=== PATIENT | female | born 1930 | race Caucasian/White ===

== ENCOUNTER 2018-06-10 19:52 | Inpatient (IN) | payer MEDICARE, OTHER ==
[~2018-06-10] VITALS: Ht 152.4 cm; Wt 60.6 kg
[~2018-06-10 19:52] MED LIST: ACET325 PO; ACET500 PO; ALEN10 PO; ALUMAG30SU PO; ANAS1 PO; ASPI325 PO; ASPI81EC PO; Anastrozole1 GM PO; Aspir 8181 MG PO; CALCAVITD PO; CALCAVITDA PO; CALMAGZIN PO; DOCU100 PO; ENOX40I SC; HYDR1TAB94 PO; Hair, Skin & N1 EACH PO; IBUP800 PO; INSUASPI SC; KRILL OIL 3001 EACH PO; KRILL PO; METO25 PO; MULVITMINF PO; NAPROXEN PO; NIFE30ER PO; PIOG15 PO; PRAV20 PO; PRAV40 PO; PROP30DR BOTHEYES; SPIR25 PO; SULTRIDS PO; TRAM50 PO; Ventolin Soln3 ML INH
[2018-06-10 21:36] LABS: BASOPHILS ABSOLUTE AUTO 0.05 K/mm3 (0.00-0.23); BASOPHILS PERCENT AUTO 0 % (0-2); EOSINOPHILS ABSOLUTE AUTO 0.04 K/mm3 (0.00-0.68); EOSINOPHILS PERCENT AUTO 0 % (0-6); Hematocrit 40.5 % (33.0-51.0); IMMATURE GRAN ABSOLUTE AUTO 0.03 K/mm3 (0.00-0.10); IMMATURE GRAN PERCENT AUTO 0 % (0-1); LYMPHOCYTES ABSOLUTE AUTO 0.62 K/mm3 (0.84-5.20); LYMPHOCYTES PERCENT AUTO 5 % (21-46); MONOCYTES ABSOLUTE AUTO 0.67 K/mm3 (0.16-1.47); MONOCYTES PERCENT AUTO 5 % (4-13); Mean Corpuscular HGB Conc 32.1 g/dL (31.5-36.5); Mean Corpuscular Volume 90 fL (80-100); Mean Platelet Volume 9.5 fL (9.1-12.4); NEUTROPHILS ABSOLUTE AUTO 10.98 K/mm3 (1.96-9.15); NEUTROPHILS PERCENT AUTO 89 % (41-73); Platelet Count 233 K/mm3 (150-400); RDW Coefficient Variation 14.3 % (11.7-14.2); RDW Standard Deviation 48.1 fL (35.1-46.3); Red Blood Cell Count 4.48 M/mm3 (3.80-5.20); White Blood Cell Count 12.39 K/mm3 (4.00-11.30)
[2018-06-10 21:54] LABS: Alanine Aminotransfer (ALT/SGP 17 U/L (12-78); Albumin, Blood 3.4 g/dL (3.4-5.0); Alk Phos 119 U/L (50-136); Anion Gap 9 mmol/L (6-16); Aspartate Aminotrans (AST/SGOT 17 U/L (12-37); Bilirubin, Total 0.6 mg/dL (0.1-1.0); Blood Urea Nitrogen 18 mg/dL (8-24); Bun/Creatinine Ratio 21.9 (12.0-20.0); CO2, Blood 23 mmol/L (21-32); Calcium, Blood 9.2 mg/dL (8.5-10.1); Chloride, Blood 108 mmol/L (98-108); Creatinine, Blood 0.82 mg/dL (0.40-1.00); Globulin, Blood 3.4 g/dL (2.2-4.0); Glomerular Filtration Rate >60 (60-); Glucose, Blood 172 mg/dL (70-99); Potassium, Blood 4.1 mmol/L (3.5-5.5); Sodium, Blood 140 mmol/L (136-145); Total Protein, Blood 6.8 g/dL (6.4-8.2)
[2018-06-10 21:56] LABS: Source, Urine Catheter
[2018-06-10 22:04] LABS: Bilirubin, Urine Neg (Neg); Blood, Urine 1+ (Neg); Glucose Qualitative, Urine 2+ (Neg); Ketones, Urine 2+ (Neg); Leukocyte Esterase, Urine Neg (Neg); Nitrite, Urine Neg (Neg); Protein, Urine 1+ (Neg); Urobilinogen, Urine NORM (Normal)
[2018-06-10 22:10] LABS: Appearance, Urine Clear (Clear); Bacteria Not Seen /hpf; Color, Urine Yellow (P-Yellow); Red Blood Cells, Urine 0-2 /hpf (0-2); Squamous Epithelial Cells Not Seen /hpf (Few); White Blood Cells, Urine Not Seen /hpf (0-5)
--- NOTE | 2018-06-11 01:15 | NUR ---
PT ADMITTED FROM ER FOR L FIBULA FX. PT ORIENTED X1. HX OF SEVERE DEMENTIA. MEDICATED WITH 50 MG ULTRAM. FLUIDS INFUSING. BED ALARM ON FOR SAFETY. CALL LIGHT IN REACH. WILL UPDATE MEDICAL RECORD + HISTORY UPON FAMILY ARRIVAL.
--- NOTE | 2018-06-11 16:46 | NUR ---
SUMMARY IN TO ASSESS PT AT 1420. HE SPOKE WITH FAMILY ABOUT PLAN OF CARE. SPLINT WAS PLACED TO LEFT LOWER LEG, CIRC REMAINS WNL. LEG ELEVATED ON PILLOWS. PT TOLERATED PROCEDURE WITH NO PROBLEMS. VSS, BED ALARM ON FOR SAFETY. FAMILY AT BEDSIDE. CALL LIGHT IN REACH. [facility]
--- NOTE | 2018-06-11 21:50 | NUR ---
PT HAS BECOME MORE CONFUSED, IS SCREAMING "HELP ME" AND SWINGING AT STAFF. SHE IS NOT COOPERATIVE WITH ANY CARES, REFUSED MEDICATIONS, VITALS, AND CBG. SHE CAUSED HERSELF A SKIN TEAR TO THE RIGHT FOREARM SWINGING ITEMS. VERIFY REP NOTIFIED. PT TO BE MOVED TO [facility], REPORT TO ELIJAH CHAVARRIA.
--- NOTE | 2018-06-12 04:43 | NUR ---
SHIFT SUMMARY RECEIVED REPORT FROM ELIJAH BLEVINS FROM SURGICAL. ARRIVED TO MEDICAL FLOOR AROUND 0. ALERT TO SELF, BUT RESPONDS TO VERBAL STIMULI. NO C/O PAIN/DISCOMFORT. RECEIVED ORDER TO D/C IV ACCESS; R/T PT PULLING BOTH IV'S. APPEARED TO HAVE REST MOST OF SHIFT. NO ACUTE CHANGES NOTED UPON ARRIVAL. BED IN LOWEST POSITION. ALARM ON. CALL LIGHT IN REACH. REPORT TO ONCOMING RN.
[2018-06-12 05:30] LABS: BASOPHILS ABSOLUTE AUTO 0.05 K/mm3 (0.00-0.23); BASOPHILS PERCENT AUTO 1 % (0-2); EOSINOPHILS ABSOLUTE AUTO 0.12 K/mm3 (0.00-0.68); EOSINOPHILS PERCENT AUTO 2 % (0-6); Hematocrit 33.7 % (33.0-51.0); Hemoglobin 10.9 g/dL (11.5-16.0); IMMATURE GRAN ABSOLUTE AUTO 0.02 K/mm3 (0.00-0.10); IMMATURE GRAN PERCENT AUTO 0 % (0-1); LYMPHOCYTES ABSOLUTE AUTO 0.97 K/mm3 (0.84-5.20); LYMPHOCYTES PERCENT AUTO 12 % (21-46); MONOCYTES ABSOLUTE AUTO 0.89 K/mm3 (0.16-1.47); MONOCYTES PERCENT AUTO 11 % (4-13); Mean Corpuscular HGB 29.3 pg (26.0-34.0); Mean Corpuscular HGB Conc 32.3 g/dL (31.5-36.5); Mean Corpuscular Volume 91 fL (80-100); Mean Platelet Volume 9.7 fL (9.1-12.4); NEUTROPHILS ABSOLUTE AUTO 6.21 K/mm3 (1.96-9.15); NEUTROPHILS PERCENT AUTO 75 % (41-73); Platelet Count 204 K/mm3 (150-400); RDW Coefficient Variation 14.4 % (11.7-14.2); RDW Standard Deviation 47.7 fL (35.1-46.3); Red Blood Cell Count 3.72 M/mm3 (3.80-5.20); White Blood Cell Count 8.26 K/mm3 (4.00-11.30)
[2018-06-12 05:56] LABS: Alanine Aminotransfer (ALT/SGP 18 U/L (12-78); Albumin/Globulin Ratio 0.9 (0.8-1.8); Alk Phos 112 U/L (50-136); Anion Gap 7 mmol/L (6-16); Aspartate Aminotrans (AST/SGOT 36 U/L (12-37); Bilirubin, Total 0.7 mg/dL (0.1-1.0); Blood Urea Nitrogen 13 mg/dL (8-24); CO2, Blood 24 mmol/L (21-32); Calcium, Blood 9.2 mg/dL (8.5-10.1); Chloride, Blood 109 mmol/L (98-108); Creatinine, Blood 0.72 mg/dL (0.40-1.00); Globulin, Blood 3.3 g/dL (2.2-4.0); Glomerular Filtration Rate >60 (60-); Glucose, Blood 104 mg/dL (70-99); Potassium, Blood 4.4 mmol/L (3.5-5.5); Sodium, Blood 140 mmol/L (136-145); Total Protein, Blood 6.3 g/dL (6.4-8.2)
--- NOTE | 2018-06-12 17:54 | NUR ---
SHIFT SUMMARY CALM, CONFUSED; PULLED SANTAMARIA CATHETER OUT. UP IN CHAIR FOR MOST OF AFTERNOON TOLERATED WELL. SON TO VISIT TODAY FROM [place] AND AWARE THAT PT WILL NEED PLACEMENT IN NURSING FACILITY. MEDICATED FOR PAIN TO LLE. TAKING FLUIDS/MEDS WELL. 2 PERSON MAX ASSIT TO BSC FOR BOWEL MOVEMENT.
--- NOTE | 2018-06-13 04:27 | NUR ---
SHIFT SUMMARY ALERT TO SELF, RESPONDS TO VERBAL STIMULI. NO C/O PAIN/DISCOMFORT; GIVEN SCHEDULED ULTRAM @ HS. APPEARED TO HAVE RESTED MOST OF THE SHIFT. TRANSFERED FROM CHAIR TO BED WITH 2 MAX ASSIST. HYPERTENSIVE WITH ELEVATED PULSE; METOPROLOL @ HS; VSS/AFEBRILE THIS AM 0429. NO ACUTE CHANGES NOTED OVERNIGHT. BED IN LOWEST POSITION. ALARM ON. WCTM. REPORT TO ONCOMING RN.
--- NOTE | 2018-06-13 11:41 | NUR ---
PT WITH URINE OUTPUT SINCE LAST P.M. AFTER PT PULLED HER SANTAMARIA OUT DR GALEANA AWARE. NEW ORDERS TO REPEAT BLADDER SCAN AT 1345.
--- NOTE | 2018-06-13 18:27 | NUR ---
SHIFT SUMMARY UP IN CHAIR FOR 2-3 HOURS TODAY AND FOR LUNCH. LIFT PATIENT. VERY WEAK. ABLE TO EAT INDEPENDENTLY. PAIN WITH MOVEMENT. ABLE TO SIT ON BSC. CONTINENT. VERY CONFUSED; DEMENTIA.
--- NOTE | 2018-06-14 04:29 | NUR ---
SHIFT SUMMARY NO ACUTE CHANGES; REMAINS ALERT TO SELF AND RESPONDS TO VERBAL STIMULI. DENIES PAIN/DISCOMFORT, BUT CALLS OUT IN PAIN WITH MOVEMENT. MEDICATED PER EMAR. REMAINS HYPERTENSIVE WITH ELEVATED PULSE; METOPROLOL @ HS. APPEARED TO REST MOST OF SHIFT. BED IN LOWEST POSITION. ALARM ON. WCTM. REPORT TO ONCOMING RN.
--- NOTE | 2018-06-14 10:45 | NUR ---
Clinical update received from and RN. Visit made. Pt was sleeping but woke easily to voice. She was very calm and pleasant in confusion until I and another RN attempted to reposition her in bed. She cried out in pain and appeared anxious, fearful and demonstrated obvious indicators of extreme pain. This was reported to with request for additional medications for breakthru pain. Pt had had Tramadol per tid schedule this am and was not due for another dose within the next couple hours. Recommended Roxanol 5-10 mg SL q2-4 hrs prn breakthru pain and premed for position changes or transfers. Pt with attends on and also uses BSC. She has extensive bruising and skin tears to both forearms. L lower ext in temporary splint for tibial fx. No family present. Satellite Manager referral made yesterday. Staff spoke to family friend, Felix, who states recognizes that he cannot care for pt at home and requests assist with [facility] care placement. This informaiton passed on to GALILEA Wiley. I will keep checking to see if family present to touch bases with. Report given to pt's RN, Gino, re: all of above. It is unclear if pt would meet criteria for hospice due to her dementia but she will need s/s and pain management with or without hospice support. Will follow with Care Mgmt.
--- NOTE | 2018-06-14 16:46 | NUR ---
SHIFT SUMMARY THE PATIENT PRESENTED THIS AM WITH WITH VITALS WNL, A&O TO SELF AMD LUNGS THAT WERE CLEAR. BUT DIM IN THE BASES. THE PATIENT WORKED WITH P/T AND O/T, BUT MOSTLY REFUSED TO DO ANYTHING. THE PATIENT WAS LIFTED WITH A KIM LIFT TO HER CHAIR FOR ABOUT THREE HOURS, AT LUNCH TIME. THE PATIENT REFUSED TO GO TO THE BEDSIDE COMMODE AFTER BEING BLADDER SCANCED AND WAS STRIAGTH CATHED WITH THE REMOVEAL OF 750 ML OF URINE. THE PATIENT IS RESTING AT THIS TIME WILL CONTINUE TO MONITOR.
--- NOTE | 2018-06-15 03:58 | NUR ---
SHIFT SUMMARY PT ADMITTED FOR L FEMUR FRACTURE SECONDARY TO A FALL AT HOME. FRACTURE IS NOT NON-OPPERABLE. DNR. ADA DIET. UP IN CHAIR DAILY-USE KIM LIFT TO TRANSFER FROM BED TO RECLINER TO PRESERVE SKIN INTEGRITY AND INCREASED UPRIGHT TOLLERANCE. BLADDER SCAN PT IF UNABLE TO VOID AND STRAIGHT CATH IF GREATER THEN 450 MLS. PT ABLE TO VOID APPROPRIATELY THIS NIGHT. NO IV ACCESS NEDED AND ORDER IN PLACE. CBG AT AND HS. PT/OT. LOVENOX FOR DVT PROPHYLAXIS. PER REPORT PT ABLE TO TAKE MEDICATIONS WHOLE WITH WATER, THIS WAS NOT THE CASE THIS NIGHT. PT MEDS NEED TO BE CRUSHED WITH APPLESAUCE. PT IS SIGNIFICANTLY CONFUSED, UNABLE TO REDIRECT, COMBATIVE, AND UNABLE TO CONSOLE. ATTEMPTED TO OFFER PAIN MEDICATIONS AND PT ADIMATELY REFUSED STATING SHE WAS HAVING NO PAIN. WILL CONTINUE TO REAPPROACH. PT IS A HEAVY 2-3 PERSON WITH ATTENDS MANAGMENT WHILE IN BED DUE TO BEHAVIORS. PT PRESENTED TO THE ED WITH COMPLAINTS OF SEVERE PAIN TO THE LEFT LEG SUBSEQUENT FALL WHILE GETTING IN TO THE SHOWER PER . PT NOTED TO HAVE SEVERE DEMENTIA WHICH IS THE PTS BASELINE PER REPORT. CASE MANAGEMENT IS FOLLOWING UP ON DISCHARGE ARRANGEMENTS. PT HAS APPEARED TO REST COMFORTABLY IN BED OFF AND ON, SCREAMING OUT FOR HELP A FEW TIMES. REPOSITIONED PT AT THAT TIME WHICH PT SIGNIFICANTLY PROTESTED, ALSO RAISED SOUND ON MUSIC DAYO IN ROOM AND LEFT LIGHT ON. PT HAS APPEARED TO REST COMFORTABLY SINCE THAT TIME STAIRING UP AT THE CEILING WITH NO APPARENT SIGNS OF ACUTE DISTRESS. FREQUENT VISUAL CHECKS PT DOES NOT APPEAR TO USE CALL LIGHT APPROPRIATELY. BED ALARM FOR SAFETLY.
--- NOTE | 2018-06-15 18:39 | NUR ---
SHIFT SUMMARY THE PATIENT PRESENTED THIS AM WITHVITALS WNL, A&O TO SELF AND LUNGS THE WERE CLEAR. THE PATIENT WAS UNWILLING TO TAKE HER MEDS AT THE PROPER TIME BUT AFTER WAITING FOR 30 MINUTES I WAS ABLE TO GIVE HER THE B/P MEDS WITH APPLE SAUSE. THE PATIENT HAS BEEN PLEASENT MOST OF THE SHIFT AND HAS TAKEN PAIN MEDICATION ONCE ONLY AND REFUSED IT THE REST OF THE TIME. THE PATIENT IS EATING HER DINNER AT THIS TIME, WILL CONTINUE TO MONITOR.
--- NOTE | 2018-06-16 05:56 | NUR ---
SHIFT SUMMARY PT IS A&O X 1-2, AND FORGETFUL. SHE WAS COOPERATIVE WITH CARE DURING THE NIGHT. THE PT GRIMACED WHEN HER L LEG WAS MOVED, BUT DENIED THE NEED FOR PAIN MEDS. SHE DENIED SOB OR NAUSEA AND SLEPT WELL OFF AND ON DURING THE NIGHT. VITAL SIGNS STABLE. NO OTHER ACUTE CHANGES IN PT CONDITION. WILL CONTINUE TO MONITOR AND TREAT PER EMAR UNTIL HAND OFF TO DAY SHIFT.
--- NOTE | 2018-06-16 17:36 | NUR ---
SHIFT SUMMARY PT AXO TO SELF AND FOLLOWING DIRECTIONS. PT HAD FEVER OF 100.2 AT 1504. MEDICATED PER EMAR, AFEBRILE AT THIS TIME. PT UP TO A CHAIR X2 THIS SHIFT WITH LIFT. PT CONFUSED, FORGETFUL AND APACHE. NO ACUTE CHANGES THIS SHIFT. BED IN LOW POSITION, CALL LIGHT WITHIN REACH, ALARM ON.
--- NOTE | 2018-06-17 05:20 | NUR ---
VSS, AFEBRILE, A/O TO SELF, NO IV - MD OK, L LE IMMOBILZED WITH YVETTE WRAP, FORGETFUL, CALLS OUT RANDOMLY AT TIMES, USE THE LIFT TO TX FOR PT SAFETY, MEDS CRUSHED IN APPLESAUCE, INCONT, SKIN TEAR R FA, PLACEMENT ISSUE.
--- NOTE | 2018-06-17 16:21 | NUR ---
PATIENT ALERT TO SELF. SEEMED TO HAVE PAIN TO LEFT LEG WHEN MOVING BY LIFT, BUT WHEN GOT BACK IN BED DID NOT C/O PAIN AND FELL ASLEEP EASILY. UP IN CHAIR USING LIFT. LEFT LEG ELEVATED WITH PILLOW. COOPERATIVE. UNLABORED RESPIRATIONS. SLEEPING MOST OF DAY. BED IN LOW POSITION. WILL CONTINUE TO MONITOR.
--- NOTE | 2018-06-18 07:13 | NUR ---
06/18/18 0600 SLEEPING WITHOUT DISTRESS. DENIED PAIN THIS SHIFT. VITALS REMAIN STABLE. TURN Q 2 HOURS AND WAS INCONTINENT SEVERAL TIMES.
--- NOTE | 2018-06-18 16:58 | NUR ---
PATIENT ALERT TO SELF, FAMILY AND SITUATION. MEDICATED ONCE FOR PAIN WITH GOOD RESULTS. UP TO CHAIR FOR BREAKFAST AND LUNCH. SPLINT NOT TAKEN OFF. PATIENT ABLE TO WIGGLE TOES LEFT SIDE. UNLABORED RESPIRATIONS. NO ACUTE CHANGES. WILL CONTINUE TO MONITOR.
--- NOTE | 2018-06-19 06:20 | NUR ---
SHIFT SUMMARY: PT ALERT TO SELF ONLY. PT BECOMES VERY RESTLESS THIS SHIFT AND REQUESTS TO LEAVE THE HOSPITAL BECAUSE PT WANTED TO BEAR WEIGHT ON L FEMUR FX, AND WALK, WHEN PT HAS BEEN REQUIRING KIM LIFT FOR TRANSFER SINCE ADMISSION. THIS RN ABLE TO DE-ESCALATE PT. PT MEDICATED 2X FOR PAIN c 5MG NORCO AVAILABLE Q6H. PT REPORTS RELIEF. SPLINT IN PLACE TO L FEMUR. PULSES PALPABLE IN DISTAL TOES, AND PT DENIES ANY N/T. NO OTHER ACUTE CHANGES TO REPORT. WILL CONT TO MONITOR AND PROVDE CARE UNTIL PRESUMED BY ONCOMING RN.
--- NOTE | 2018-06-19 17:38 | NUR ---
SHIFT SUMMARY PT AXO TO SELF ONLY, [place]. VSS. PT UP TO RECLINER THROUGHOUT THE SHIFT, BACK IN BED AT THIS TIME. SLEEPING MOST OF THE DAY, CALLS OUT WHEN AWAKE. ORTHO CONSULT TODAY, NON-WEIGHT BEARING ORDER IN PLACE. SKIN INTACT UNDER DRESSING AND VERIFIED WITH DR. QUARLES. PT CONTINUES TO BE IN IMMOBILIZER THAT WAS PLACED BY DR. DUFFY. BED IN LOW POSITION, CALL LIGHT WITHIN REACH, BED ALARM ON.
--- NOTE | 2018-06-19 17:55 | NUR ---
PATIENTS ATTENDS WERE CHECKED AND THEY WERE CLEAN AND DRY. RN WAS NOTIFIED.
--- NOTE | 2018-06-20 06:31 | NUR ---
SHIFT SUMMARY: PT L LEG REMAINS IN IMMOBILIZER. PT IS SLEEPING ENTIRE SHIFT, BUT AROUSABLE FOR ATTENDS CHANGES AND REPOSITIONING. PT WHIMPERS, DEMARIO OUT, AND BECOMES TEARFUL c ANY MOVEMENT OF THE L LEG. ADMNISTERED PO NORCO 1X THIS SHIFT. POST VOID RESIDUAL BLADDER SCAN UNREMARKABLE @ >150 mL. DENIES SOB. ALERT TO SELF ONLY, CAN FOLLOW SOME COMMANDS. VERY FORGETFUL. VSS. WILL CONT TO MONITOR AND PROVIDE CARE UNTIL PRESUMED BY ONCOMING RN.
--- NOTE | 2018-06-20 18:24 | NUR ---
SHIFT SUMMARY PT AXO TO SELF ONLY, PLEASANT BUT FORGETFUL. PT SLEEPING THROUGHOUT THE SHIFT. PT UP TO RECLINER WITH LIFT AND THEN BACK TO BED AT 1300. PT MEDICATED FOR PAIN ONCE PER EMAR. IMMOBILIZER ORDERED AND IS AT BEDSIDE, PATIENT CURRENTLY IN SPLINT THAT WAS PLACED BY DR DIMAS ON . MEPILEX ON COCCYX. BED IN LOW POSITION, CALL LIGHT WITHIN REACH, BED ALARM ON
--- NOTE | 2018-06-21 05:49 | NUR ---
SHIFT SUMMARY PT A&O TO SELF, [place], PLEASANTLY CONFUSED BUT ABLE TO FOLLOW DIRECTIONS. SPLINT ON LEFT LEG IN PLACE. MEDICATED PAIN PER EMAR. SLEPT WELL T/O THE NIGHT. BED ALARM ON AND APPROPRIATE SIDERAILS UP FOR SAFETY. CALL LIGHT WITHIN REACH. WILL CONTINUE TO MONITOR.
--- NOTE | 2018-06-21 17:05 | NUR ---
PATIENT ORIENTED TO SELF ONLY. TURNING Q2 HOURS, UP TO CHAIR WITH KIM LIFT. DR. REAGAN AT BEDSIDE TODAY AND REPLACED SPINT WITH IMMOBILIZER. FOLLOW K-RAY OF L KNEE COMPLETED. MEDICATED X2 WITH NORCO TO TREAT PAIN. NWB TO LLE. TOLERATING ADA DIET, NO ORDER FOR BLOOD SUGARS. INCONTINENT OF URINE, WEARING ATTENDS WITH GOOD OUTPUT THIS SHIFT. AWAITING PLACEMENT IN HALFWAY CARE.
--- NOTE | 2018-06-22 04:15 | NUR ---
SHIFT SUMMARY MEDICATED PAIN PER EMAR WITH GOOD RESULT. LLE IMMOBILIZER IN PLACE. REPOSITIONED T/O SHIFT. SLEP WELL. PT PLEASANT AND COOPERATIVE WITH CARE. WILL CONTINUE MONITOR.
--- NOTE | 2018-06-22 17:48 | NUR ---
PATIENT ORIENTED TO SELF AND FAMILY. UP IN CHAIR FOR MOST OF THIS SHIFT USING A KIM. NORCO GIVEN TO TREAT PAIN, VERY PAINFUL WITH REPOSITIONING. REFUSES MEDS AT TIMES. DOES BEST WITH MEDS CRUSHED IN APPLESAUCE AT MEAL TIME. FOAM DRESSING TO COCCYX REMAINS C/D/I. FALL PRECAUTIONS IN PLACE. NO ACUTE CHANGES THIS SHIFT.
--- NOTE | 2018-06-23 07:16 | NUR ---
no complaint of pain, took medication in as with no problems, alert at baseline, no IV, room air, sbar report provided to day staff
--- NOTE | 2018-06-23 16:32 | NUR ---
SUMMARY PT HAS HX DEMENTIA, ORIENT TO NAME ONLY. SHE IS VERY PLEASANT, SMILING GENERALLY COOPERATIVE HOWEVER @ X'S DISROBES. SHE HAS NO PAIN @ REST HOWEVER CRIES OUT WITH MOVEMENT/REPOSITIONING, ESPECIALLY MOVEMENT OF L LEG, IMMOBILIZER IN PLACE. LE IE SWOLLEN WITH BRUISING, SHE IS ABLE TO WIGGLE TOES, CAP REFILL <3 SECS, DR BANSAL ASSESS. HAVE GIVEN NORCO TODAY FOR PAIN CONTROL/RELIEF. VSS. WILTON WEAVER ARRANGING FOR MEMORY CARE WHEN APPROP/FAMILY.
--- NOTE | 2018-06-24 07:17 | NUR ---
moods were changable, some times she liked people and other times she yelled and tried to strike people trying to help her, no IV, room air, sbar report given to returning nurse, call light in reach
--- NOTE | 2018-06-24 16:42 | NUR ---
SUMMARY PT CONTINUES CONFUSED/DISORIENTED, HX DEMENTIA. SHE IS GENERALLY PLEASANT & COOPERATIVE WITH CARE. REQUIRES ASSIST WITH MEALS, POOR APPETITE, EATS VERY LITTLE INSPITE OF ENCOURAGEMENT, ELECTRICAL ENGINEERING TEACHER ASSISTING TODAY WITH MENU & SUPPLEMENTS. VERY LITTLE PARTICIPATION WITH PT/OT, LLE PAINFUL WITH MOVEMENT, IMMOBILIZER IN PLACE. VSS. DR NIMISHA BLOCK [facility] ON PLACEMENT.
--- NOTE | 2018-06-25 04:15 | NUR ---
SHIFT SUMMARY PT ALERT, NOT ORIENTED. BECOMES AGITATED AT TIMES, PULLS OFF CLOTHING. INCONTINENT. URINE DARK AND FOUL SMELLING. TURNED PT AND CHANGED NEEDED. PT DOES NOT LIKE TO BE TOUCHED AND BECOMES VERY UPSET WHEN TURNING. PAINFUL IN LLE W/ MOVEMENT. MEDICATED X 1 W/ 1 TAB NORCO[address] IMMOB[address] IN PL[address] ON L KNEE. PT TOLERATING WELL. REDNESS AND EXCORIATION ON COCCYX AREA. BARRIER CREAM APPLIED. ATTENDS IN PLACE. OTHERWISE NO ACUTE CHANGES. WILL CONTINUE TO MONITOR.
--- NOTE | 2018-06-25 16:28 | NUR ---
GERTRUDIS ISQUITE PLEASANT CONFUSED. NONSENSICAL. KNOWS SELF SOMEWHAT. DENIES PAIN. H/R IRREG, NO MURMER NOTED. NO TLE. LUNGS CLEAR RESP EASY, UNLABORED. ON R.A. BT X4 LAST BM UNKNOWN BY PT. VOIDS ATTENDS. HAS LEG BRACE FOR BROKEN LEFT LEG. DENIES PAIN. BED IN LOW POSITION, CALL LITE IN REACH. BED ALARM ON FOR SAFETY.
--- NOTE | 2018-06-25 16:32 | NUR ---
PT HAS BEEN PLEASANTLY CONFUSED TODAY. DENIES PAIN. HAS BEEN WATCHING TV OFF AN ON TODAY. NO C/O PAIN . BED IN LOW POSITION, CALL LITE IN REACH, BED ALARM ON FOR SAFETY
--- NOTE | 2018-06-25 17:14 | NUR ---
PT C/O PAIN IN LEG WHEN TURNED. REFUSED MEDS. ASKED THREE TIMES. AGAIN REFUSED.
--- NOTE | 2018-06-26 04:09 | NUR ---
SHIFT SUMMARY PATIENT HAD NO ACUTE CHANGES OBSERVED DURING THE SHIFT. AXO X1 AND CONFUSED/BEDFAST. DENIES PAIN, SOB, AND N/V. VSS/AFEBRILE. NO IV ACCESS. IMMOBILIZER IN PLACE ON LEFT KNEE. SLEPT MOST OF THE SHIFT. CALL LIGHT IN REACH. BED IN LOWEST POSITION. WILL CONTINUE TO MONITOR UNTIL DAY SHIFT NURSE ASSUMES CARE.
--- NOTE | 2018-06-26 05:58 | NUR ---
BP 164/81; PO APRESOLINE 10 MG GIVEN PER EMAR PRN. WILL REASSESS.
--- NOTE | 2018-06-26 06:40 | NUR ---
BP REASSESED 130/57. CALL LIGHT IN REACH. WILL CONTINUE TO MONITOR.
--- NOTE | 2018-06-26 17:43 | NUR ---
NO ACUTE CHANGES THIS SHIFT. PATIENT COMPLAINED OF PAIN BUT REFUSED PAIN MEDICATION WHEN OFFERED. FAMILY AT BEDSIDE THIS MORNING AND AFTERNOON. LEG IMMOBILIZER STILL IN PLACE. REPOSITIONED Q2HR TO PREVENT SKIN BREAKDOWN. BED ALARM IN PLACE. WILL CONTINUE TO MONITOR
--- NOTE | 2018-06-27 04:17 | NUR ---
SHIFT SUMMARY PATIENT HAD NO ACUTE CHANGES OBSERVED THIS SHIFT. AXO X ONE AND BEDFAST W/CONFUSION. NO IV ACCESS. DENIES PAIN RESTING AND SOME PAIN WITH MOVEMENT OF LEFT LEG. REFUSED PAIN MEDICATION. IMMOBILIZER IN PLACE LEFT LEG. VSS/AFEBRILE. SLEPT MOST OF SHIFT. TAKES MEDICATION CRUSHED IN APPLE SAUCE. CALL LIGHT IN REACH. BED IN LOWEST POSITION. WILL CONTINUE TO MONITOR UNTIL DAY SHIFT NURSE ASSUMES CARE.
--- NOTE | 2018-06-27 15:23 | NUR ---
PATIENT'S FAMILY AT BEDSIDE THIS AFTERNOON. NO ACUTE CHANGES THIS SHIFT. PAIN MEDICATION GIVEN, PATIENT SEEMS MORE COMFORTABLE THIS CHANGING AND ROLLING BUT DOES QUESTION STAFF ABOUT WHY WE ARE CLEANING HER. LEG IMMOBILIZER IN PLACE. PATIENT REMAINS PLEASANTLY CONFUSED. CALL LIGHT IN REACH, BED ALARM IN PLACE
--- NOTE | 2018-06-28 04:13 | NUR ---
SHIFT SUMMARY PATIENT HAD NO ACUTE CHANGES OBSERVED DURING THE SHIFT. BP 88/50 AND LOPRESSOR HELD. AXOX 2 AND BEDFAST. LEFT LEG PAIN ON MOVEMENT. DENIES PAIN MEDICATION. IMMOBILIZER ON LEFT LEG. NO IV ACCESS. MEDS CRUSHED IN APPLE SAUCE. SLEPT MOST OF THE SHIFT. CALL LIGHT IN REACH. BED IN LOWEST POSITION. CALL LIGHT IN REACH. WILL CONTINUE TO MONITOR UNTIL DAY SHIFT NURSE ASSUMES CARE.
--- NOTE | 2018-06-28 15:50 | NUR ---
SHE IS VERY QUIET. SHE HAS POOR VISION AND IS VERY YOMBA SHOSHONE. SHE SMILES A LOT. HER LEFT LEG IS PAINFUL WHEN WE MOVE IT. THE IMMOBILIZER IS ON. I CHECKED HER SKIN UNDERNEATH. IT IS WNL. HEEL PROTECTORS PUT ON THIS MORNING AND BILATERAL FOOT SEQUENTIALS PUT ON THIS AFTERNOON. SHE HAS BEEN TURNED AND CHANGED. FOAM DRESSING REMOVED ON BUTTOCKS. SKIN UNDERNEATH MILDLY RED. NO OPENINGS. WE ASSIST FEED NECESSARY. SHE HAS EATEN WELL TOPDAY. SHE SLEEPS A LOT IN BETWEEN MEALS. HER VISITED AND SAID HE'LL BE BACK AGAIN IN 2 DAYS.
--- NOTE | 2018-06-29 04:39 | NUR ---
INDUSTRIAL ELECTRICIAN JOURNEYMAN SUMMARY NO ACUTE CHANGES THIS SHIFT. PT AAOX2 BUT PLEASANT. PT MORE DISORIENTED DURING THE NIGHT, EXPECIALLY RIGHT AFTER WAKING UP. PT RESISTS ATTENDS CHANGES AND REPOSITIONING MOST OF THE TIME. PT INCONTINENT. TREATED FOR PAIN X1 AT START OF SHIFT WITH NORCO. PT HAS RESTED WELL THROUGH MOST OF THE SHIFT. VSS, WILL CONTINUE TO MONITOR.
--- NOTE | 2018-06-29 15:18 | NUR ---
NO CHANGES TODAY. SHE HAS BEEN INCONTINENT OF LARGE AMT OF URINE. SHE IS NOT EATING GOOD TODAY YESTERDAY, BUT FAIR. SHE DENIES NEED FOR ANY PAIN MEDICINE. L LEG IMMOBILIZER ON. GOOD CMS IN L FOT. CBG'S WILL START TONIGHT PER .
--- NOTE | 2018-06-29 15:55 | NUR ---
ASLEEP AFTER ANOTHER INCONTINENT BM. SHE HAD PAIN WITH TURNING AND CHANGING. WILL MEDICATE HER FOR PAIN AT DINNER TIME IF SHE WILL LET ME.
--- NOTE | 2018-06-29 18:12 | NUR ---
NO CHANGES TODAY. HER SKIN IS WNL UNDER HER IMMOBILIZER. NORCO GIVEN JUST BEFORE DINNER BECAUSE SHE IS PAINFUL WHRN WE MOVE HER. SHE MOVES HER UPPER BODY A LITTLE BUT MOSTLY JUST LAYS STILL. SHE HAS BEEN TURNED AND CHANGED REGULARLY TODAY.
--- NOTE | 2018-06-30 04:55 | NUR ---
SHIFT SUMMARY PT SLEPT WELL, GRIMACES WITH POSITIONING. PT REFUSING TO TAKE ANY MEDICATION, SPITS THEM OUT. MEDICATIONS CRUSHED WITH APPLESAUCE, PT SPITS IT OUT. PT BOTTOM REDDENED, NOTED WITH BRIEF CHANGE. WILL CONTINUE TO MONITOR.
--- NOTE | 2018-06-30 13:27 | NUR ---
[facility] PT.
--- NOTE | 2018-06-30 13:34 | NUR ---
PT SON AT BEDSIDE, REPORTS HE AND HIS BROTHER ARE GOING TO GO TO [facility] FOR POSSIBLE PLACEMENT THERE.
--- NOTE | 2018-06-30 17:23 | NUR ---
SHIFT SUMMARY- PT A/O TO SELF ONLY. IMMOBILIZER IN PLACE TO LEFT LEG, PT DENIES PAIN AT REST, PAIN ONLY WITH MOVEMENT OF LEFT LEG. LS CLEAR, ON RA. HRR. PT INCONT OF URINE AND STOOL. [facility] INTO SEE PT WELL SONS WENT TO [facility], PER SONS [facility] CANNOT TAKE PT UNLESS SHE IS A 1 ASSIST, SONS REPORT THEY PREFER [facility] OVER [facility]AI HOWEVER. PT HAS BEEN DISCHARGED FROM PT/OT PER NOTES AND PT IS A LIFT OUT OF BED. PT AWAITING PLACEMENT. NO OTHER ACUTE CHANGES THIS SHIFT.
--- NOTE | 2018-07-01 06:42 | NUR ---
SHIFT SUMMARY: PATIENT IS A&O TO SELF, VS ARE STABLE, PATIENT HAS S/S OF PAIN WITH T&P AND AT REST. UTRAM IS GIVEN CRUSHED IN APPLE SAUCE WITH GOOD EFFECT. BED ALARM IS ON FOR SAFETY, NO REDNESS OBSERVED ON BUTTOCKS, INC. OF BOWEL AND BLADDER. ONLY SMEARS OF SOFT BROWN BM OBSERVED.
[2018-07-01] MEDS ORDERED: ACET325 PO (11:48)
[2018-07-01] MEDS ORDERED: Ventolin/Prove6.7 GM INH (11:49)
[2018-07-01] MEDS ORDERED: AMLO10 PO (11:50)
[2018-07-01] MEDS ORDERED: METO50ER PO (11:51)
[2018-07-01] MEDS ORDERED: XARELTO10 MG PO (11:51)
[2018-07-01] MEDS ORDERED: TRAM50 PO (11:52)
== END 2018-07-01 13:21 | disposition home or self-care (01) | DRG 563 ==
LOC: ER 19:52 → SURS 22:27 → MEDS 22:27 → SURS 06-11 00:04 → MEDS 06-11 00:53
PROVIDERS: Emergency Medicine; Internal Medicine; ADMIT Internal Medicine
DX: S82.192A Other fracture of upper end of left tibia, initial encounter for closed fracture (principal); M97.12XA Periprosthetic fracture around internal prosthetic left knee joint, initial encounter; W19.XXXA Unspecified fall, initial encounter; E11.9 Type 2 diabetes mellitus without complications; I10 Essential (primary) hypertension; F03.90 Unspecified dementia, unspecified severity, without behavioral disturbance, psychotic disturbance, mood disturbance, and anxiety; Z66 Do not resuscitate; R50.9 Fever, unspecified; Z86.718 Personal history of other venous thrombosis and embolism; Z79.01 Long term (current) use of anticoagulants; Z85.3 Personal history of malignant neoplasm of breast; Z87.891 Personal history of nicotine dependence
CPT/HCPCS: 36415; 51702; 71045; 73552; 73560-LT; 73590; 80053; 81001; 82947; 83036; 85025; 93005; 93010; 94760; 97161; 97165; 97530; 97535; 99285-25; G8978; G8979; G8987; G8988; J1650; J1885; J3010